=== PATIENT | female | born 1980 | race Caucasian/White ===

== ENCOUNTER 2022-06-10 08:26 | Day surgery (SDC) | payer MEDICAID ==
[~2022-06-10] VITALS: Ht 162.6 cm; Wt 79.0 kg
[2022-06-10 08:45] VITALS: BP 150/93
[2022-06-10] MEDS ORDERED: LIDOcaine Viscous 15ml cup ONE (08:48)
[2022-06-10] MEDS ORDERED: fentaNYL/PF 50MCG/1 ML 2ML syringe ONE (08:48)
[2022-06-10] MEDS ORDERED: MIDAZolam 1 MG/ML 5ML VIAL ONE (08:48)
[2022-06-10] MEDS ORDERED: diphenhydrAMINE 50 mg/ml inj ONE (08:48)
[2022-06-10] MEDS ORDERED: FLO0.4C PO (08:51)
[2022-06-10] MEDS ORDERED: NORG1TAB67 PO (08:52)
[2022-06-10 10:50] VITALS: BP 136/90
[2022-06-10 11:00] VITALS: BP 141/75
[2022-06-10 11:10] VITALS: BP 144/90
[2022-06-10 11:20] VITALS: BP 140/88
== END 2022-06-10 11:25 | disposition home or self-care (01) ==
LOC: GI LAB 08:26
PROVIDERS: ATTEND Internal Medicine Gastroenterology
DX: D12.8 Benign neoplasm of rectum (principal); K29.50 Unspecified chronic gastritis without bleeding; K21.00 Gastro-esophageal reflux disease with esophagitis, without bleeding; K92.1 Melena; Z79.899 Other long term (current) drug therapy
CPT/HCPCS: 43239; 45381; 45385; 99152; 99153; C1773; J1200; J2250; J3010; J7030; Z7512; A4620